=== PATIENT | male | born 1950 | race Caucasian/White ===

== ENCOUNTER 2019-10-02 08:42 | Day surgery (SDC) | payer OTHER ==
[~2019-10-02] VITALS: Ht 172.7 cm; Wt 81.6 kg
[2019-10-02] MEDS ORDERED: fentaNYL 0.05 MG/ML VIAL ONE (11:12)
[2019-10-02] MEDS ORDERED: LIDOCAINE 2% 100 MG/5 ML UJET TP ONE (11:12)
[2019-10-02] MEDS ORDERED: MIDAZOLAM 2 MG/2 ML VIAL ONE (11:12)
[2019-10-02] MEDS ORDERED: MIDAZOLAM 2 MG/2 ML VIAL IVP ONE (12:15)
[2019-10-02] MEDS ORDERED: fentaNYL 0.05 MG/ML VIAL IVP ONE (12:15)
== END 2019-10-02 13:05 | disposition home or self-care (01) ==
LOC: MDS 08:42 → MMU 08:48 → MDS 13:05
PROVIDERS: ATTEND Internal Medicine Gastroenterology
DX: Z12.11 Encounter for screening for malignant neoplasm of colon (principal); K57.30 Diverticulosis of large intestine without perforation or abscess without bleeding; E66.3 Overweight; I10 Essential (primary) hypertension; E78.00 Pure hypercholesterolemia, unspecified; Z98.890 Other specified postprocedural states; Z79.899 Other long term (current) drug therapy
CPT/HCPCS: 45378; J2250; J3010